=== PATIENT | male | born 1970 | race Caucasian/White ===

== ENCOUNTER → 2020-12-06 | Outpatient (CLI) | payer OTHER ==
[~2020-12-06] MED LIST: CATHETER FLUSH 10 ML SYR IV PRN; IOHEXOL 350 MG/ML 100 ML (OMNIPAQUE 350) VIAL IV ONE; LISI20TA26 PO; NAPR220C11 PO; RT-ALBUTEROL SULF 2.5 MG/3 ML PRE-MIX VIAL INH ONE
[2020-12-06 08:07] LABS: CREATININE SERUM 1.33 MG/DL (0.60-1.30)
[2020-12-06 08:11] LABS: ABG OXYGEN SATURATION 96 % (94-100); ABG PCO2 42 MMHG (35-45); ABG PO2 84 MMHG (79-93); ABG TCO2 26.7 MMOL/L (21.0-31.0)
[2020-12-06 08:12] LABS: ALLENS TEST YES-POS; INSPIRED O2 ROOM AIR; PATIENT TEMP 36.7; VENTILATOR NO
--- NOTE | 2020-12-06 11:07 | Diagnostic Imaging Report ---
PROCEDURE: CT chest with contrast only. TECHNIQUE: Multiple contiguous axial images were obtained through the chest after administration of intravenous contrast. Auto Exposure Controls were utilized during the CT exam to meet ALARA standards for radiation dose reduction. DATE: December 06, 2020. COMPARISON: Chest radiographs October 10, 2015. INDICATION: 50-year-old male, shortness of breath. Dyspnea. History of prior COVID 19 infection. FINDINGS: There is a calcified right upper lobe granuloma on axial image 64. There are calcified mediastinal and hilar lymph nodes also compatible with the sequela of prior granulomatous disease. There is no identified noncalcified pulmonary nodule. There is no lung mass. There are dependent predominantly linear opacities in the right and left lower lobes which most likely relate to atelectasis and/or scarring. There are also mild linear opacities in the lingula likely reflecting atelectasis or scarring. There is no additional focal airspace consolidation. There is no pneumothorax. There is no pleural effusion. The central airways are patent. There is no bronchiectasis. There is no identified pulmonary embolus. The main pulmonary artery diameter measures 2.7 cm which is within normal limits. The heart is not enlarged. No pericardial effusion. There is no identified abnormally enlarged mediastinal, hilar, or axillary lymph node meeting CT size criteria for adenopathy. There is probable diffuse fatty infiltration of the liver. The outer liver contours are not nodular. There is no identified focal liver lesion. There is no identified acute bony abnormality. There are degenerative changes of the spine. IMPRESSION: CT CHEST. 1. Mild dependent linear opacities in the right and left lower lobes and lingula most likely reflecting atelectasis and/or mild scarring. 2. No identified acute cardiopulmonary abnormality. 3. Sequela of prior granulomatous disease. 4. Probable diffuse fatty infiltration of the liver. Dictated by: Dictated on workstation # [id number]
== END ==
LOC: RT 08:00
PROVIDERS: ATTEND Internal Medicine Critical Care Medicine
DX: Z13.83 Encounter for screening for respiratory disorder NEC (principal); R06.00 Dyspnea, unspecified; Z86.16 Personal history of COVID-19
CPT/HCPCS: 36415; 36600; 71260; 82565; 82805; 84520; 94060; 94726; 94729

== ENCOUNTER → 2022-05-01 | Outpatient (CLI) | payer OTHER ==
[~2022-05-01] MED LIST changes: -CATHETER FLUSH 10 ML SYR IV PRN; -IOHEXOL 350 MG/ML 100 ML (OMNIPAQUE 350) VIAL IV ONE; -RT-ALBUTEROL SULF 2.5 MG/3 ML PRE-MIX VIAL INH ONE
--- NOTE | 2022-05-01 13:39 | Diagnostic Imaging Report ---
EXAMINATION: Chest, 2 views. HISTORY: Mild persistent asthma. COMPARISON: 10/10/2015. FINDINGS: Heart size and pulmonary vasculature are normal. The lungs are clear without consolidation, pleural effusion, or pneumothorax. The osseous structures are intact. IMPRESSION: No acute radiographic abnormality in the chest. Dictated by: Dictated on workstation # [id number]
== END ==
LOC: RAD 12:24
PROVIDERS: ATTEND Nurse Practitioner Family
DX: J45.30 Mild persistent asthma, uncomplicated (principal)
CPT/HCPCS: 71046